=== PATIENT | male | born 1990 | race Caucasian/White ===

== ENCOUNTER 2019-08-08 22:05 | Emergency (ER) | payer SELFPAY ==
[~2019-08-08] VITALS: Ht 172.7 cm; Wt 78.0 kg
[2019-08-08] MEDS ORDERED: ODEFSEY PO (22:22)
--- NOTE | 2019-08-08 22:38 | NUR ---
ED Nurse Note: pt walked in c/o headache, stiff neck and stiff back, hypersensitivity to light and sound, nausea, blurry vision x 4 days, denies vomiting at this time. pt states he has been having flu like symptoms for past two wks and went away but new symptoms started about four days ago. pt afebrile at this time, vss, resp even and unlabored on RA, will cont monitor.
[2019-08-08 22:39] VITALS: BP 162/88
--- NOTE | 2019-08-08 22:41 | NUR ---
HAND-OFF: Report given to Kati.
--- NOTE | 2019-08-08 22:57 | Emergency Room Report ---
History of Present Illness General Chief Complaint: Headache Source: Patient Present Illness HPI Is a 28-year-old male with no significant past medical history. He presents with chief complaint of headache. Onset for last 4 days. Also with subjective fever. Complains of stiffness to his neck and body. No cough congestion. Worse with lights. Pain is throbbing and diffuse nature. 9 out of 10. Ibuprofen not helping. Allergies: Coded Allergies: AMOXICILLIN (Verified Allergy, Unknown, 08/08/19) Patient History Past Medical History: see triage record, old chart reviewed Past Surgical History: none Pertinent Family History: none Social History: Denies: smoking Immunizations: other Reviewed Nursing Documentation: PMH: Agreed; PSxH: Agreed Nursing Documentation-PMH Past Medical History: No History, Except For Review of Systems Constitutional: Reports: fever Eye: Denies: eye pain, blurred vision ENT: Denies: ear pain, nose congestion, throat swelling Respiratory: Denies: cough, shortness of breath Cardiovascular: Denies: chest pain, palpitations Gastrointestinal: Denies: abdominal pain, diarrhea, nausea, vomiting Musculoskeletal: Denies: back pain, joint pain Skin: Denies: rash Neurological: Reports: headache; Denies: numbness Endocrine: Denies: increased thirst, increased urine Hematologic/Lymphatic: Denies: easy bruising All Other Systems: negative except mentioned in HPI Physical Exam Vital Signs Date Time Temp Pulse Resp B/P (MAP) Pulse Ox O2 Delivery O2 Flow Rate FiO2 08/08/19 22:19 99.3 97 18 162/88 (112) 99 Room Air Vitals with high blood pressure Sp02 EP Interpretation: reviewed, normal General Appearance: well appearing, no apparent distress, alert Head: normocephalic, atraumatic Eyes: bilateral eye PERRL, bilateral eye EOMI ENT: hearing grossly normal, normal pharynx Neck: full range of motion, supple, no meningismus Respiratory: chest non-tender, lungs clear, normal breath sounds Cardiovascular #1: regular rate, rhythm, no murmur Gastrointestinal: normal bowel sounds, non tender, no mass, no organomegaly, no bruit, non-distended Musculoskeletal: back normal, normal range of motion, gait/station normal Psychiatric: mood/affect normal Medical Decision Making Diagnostic Impression: Primary Impression: Headache Qualified Codes: R51 - Headache ER Course This patient presents with headache fever and body pain. Most likely of viral illness with a normal CBC but elevated monocyte count and eosinophil count. He has no meningismus. He looks well otherwise. I am sending sepsis. I have low suspicion for bacterial meningitis. Will discharge home. Last Vital Signs Date Time Temp Pulse Resp B/P (MAP) Pulse Ox O2 Delivery O2 Flow Rate FiO2 08/08/19 22:39 99.3 97 18 162/88 99 Room Air Status: improved Disposition: HOME, SELF-CARE Condition: Stable Scripts Ibuprofen* (MOTRIN*) 600 Mg Tablet 600 MG ORAL THREE TIMES A DAY, #30 TAB 0 Refills Prov: Parish Goins MD 08/08/19 Hydrocodone/Acetaminophen 5-325* (HYDROCODONE/ACETAMINOPHEN 5-325*) 1 Each Tablet 1 TAB ORAL Q6H PRN for For Pain, #15 TAB 0 Refills Prov: Parish Goins MD 08/08/19 Patient Instructions: General Headache Without Cause Additional Instructions: Follow-up with your doctor within a week. Return if symptoms worsen. Parish Goins MD Aug 08, 2019 22:57
[2019-08-08] MEDS ORDERED: Ketorolac 30mg Inj IV ONE (23:00)
[2019-08-08] MEDS ORDERED: Acetaminophen 500mg (ES) tab ORAL ONE (23:00)
[2019-08-08 23:16] LABS: BASOPHILS % (AUTO) 1.4 % (0.0-2.0); EOSINOPHILS % (AUTO) 3.6 % (0.0-3.0); HEMATOCRIT 43.1 % (42.0-52.0); HEMOGLOBIN 15.8 G/DL (14.2-18.0); LYMPHOCYTES % (AUTO) 30.1 % (20.0-45.0); MEAN CORPUSCULAR VOLUME 87 FL (80-99); MONOCYTES % (AUTO) 11.1 % (1.0-10.0); NEUTROPHILS % (AUTO) 53.9 % (45.0-75.0); PLATELET COUNT 307 K/UL (150-450); RED BLOOD COUNT 4.95 M/UL (4.70-6.10); RED CELL DISTRIBUTION WIDTH 10.2 % (11.6-14.8); WHITE BLOOD COUNT 7.2 K/UL (4.8-10.8)
[2019-08-08 23:27] LABS: ANION GAP 12 mmol/L (5-15); BLOOD UREA NITROGEN 13 mg/dL (7-18); CALCIUM 9.1 MG/DL (8.5-10.1); CARBON DIOXIDE 26 MMOL/L (21-32); CHLORIDE 103 MMOL/L (98-107); CREATININE 1.4 MG/DL (0.55-1.30); POTASSIUM 3.2 MMOL/L (3.5-5.1); SODIUM 141 MMOL/L (136-145)
[2019-08-08] MEDS ORDERED: HYDROCODON-ACE1 EA15 ORAL (23:48)
[2019-08-08] MEDS ORDERED: IBUPROFEN600 MG ORAL (23:48)
[2019-08-09] VITALS: BP 136/82
--- NOTE | 2019-08-09 | NUR ---
ED Nurse Note: pt is cleared to be d/c per ERMD, pt discharge and aftercare instruction w/ prescription, pt education done via discussion and handout, pt advised to follow up with pcp or return to ED if changes in condition, ambulatory w/ steady gait, vss, left w/ all belongings. iv d/c and id band removed.
== END 2019-08-09 | disposition home or self-care (01) ==
LOC: EMR 22:23
DX: R51 Headache (principal); R50.9 Fever, unspecified; Z88.0 Allergy status to penicillin
CPT/HCPCS: 36415; 80048; 85025; 86140; 96361; 96374; 99284; J1885